=== PATIENT | female | born 1980 | race Caucasian/White ===

== ENCOUNTER 2022-08-01 16:56 | Emergency (ER) | payer BC, SELFPAY ==
[2022-08-01 17:15] VITALS: BP 121/83; PULSE 77; RESP 18; TEMP 36.7; O2SAT 99; BMI 21.2
[2022-08-01 18:03] LABS: UPreg QC Valid YES; Urine Pregnancy NEGATIVE (NEGATIVE)
[2022-08-01 18:09] LABS: Amphetamine Screen Urine Not Detected (Not Detect); Barbiturates, Urine Not Detected (Not Detect); Benzodiazepines Screen Urine POSITIVE (Not Detect); Cannabinoid Screen Urine Not Detected (Not Detect); Cocaine Screen Urine Not Detected (Not Detect); Fentanyl, urine Not Detected (Not Detect); Opiate Screen Urine Not Detected (Not Detect); Phencyclidine Screen Urine Not Detected (Not Detect)
--- NOTE | 2022-08-01 19:30 | MHC.CARE ---
CARE team consulted requested by ED provider for pt who arrived to the ED via ambulance from the [place] respite program after pt was determined to not be appropriate for admission due to concerns re: alcohol use. She denied SI/HI/AVH. Pt reported that she had an appointment with her therapist today and while discussing increased anxiety and stressed she has been experiencing at home recently her therapist recommended a respite stay. Pt had been hesitant to this but eventually agreed to go. Pt is with 3 children ages 7, 10, and 13. She shared that she and her family are in the processing of moving, her youngest child has been behaviorally challenging, and another one of her children is disabled and requires more support. 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 Pt reported that she occasionally may have a drink at lunch time and sometimes a few drinks in the evening. She denied alcohol dependence and history of withdrawal symptoms. She reported that she does not overuse her prescription clonazepam and that if she takes the medication that she won't have a drink, and vice versa. She declined wanting any resources for either mental health or substance use and reported that she'll defer to her therapist for any recommendations. No further assessment needed at this time. ED provider updated re: consultation. Pt is considered safe for discharge.
--- NOTE | 2022-08-01 19:55 | MHC.RECOVSUP ---
? Reason for consult:ETOH o? Current location:[facility]? o? Identified substance use concern:? -? Support ? Intervention: Checked in with pt ? Plan:Discharge ? Additional information:Pt informed me that things got blown out of porportion, she doesn't need any services at this time, and she is being discharged.
--- NOTE | 2022-08-01 20:10 | ED.PSYCH ---
HPI - Psych General Chief Complaint: ETOH/Substance Use Stated Complaint: Crisis Time Seen by Provider: 08/01/22 17:26 Source: patient Mode of arrival: ambulatory Limitations: no limitations History of Present Illness HPI Narrative: Patient is a 41-year-old female who presents to the emergency department for evaluation of increasing anxiety, and ETOH use. Patient states that she has been experiencing increased anxiety recently and feeling very overwhelmed. Her is very supportive. He tried to call her therapist, who however was not in office. There was a reporting on the answering machine for crisis hotline through [facility]. Ultimately she spoke with them and was referred to of respite center to which she presented to today. She was hopeful that this would help with her anxiety if she had some time away and was provided with tools for better managing her anxiety. However, they performed an alcohol use screening test on her, and expressed concerns about her potential for withdrawal due to EtOH use and there is no on-call medical provider there. Therefore she was advised to come to the emergency department. When asked, patient states that she may have 4-5 drinks most days, but does not drink this much every day. She does not awake requiring a drink, she has never gone through any reported withdrawal from alcohol or have any history of withdrawal seizures. She is however taking clonazepam a total of 6 mg daily in addition to mirtazapine at bedtime. She denies any suicidal or homicidal ideations. She is not interested in any type of detox from alcohol she does not feel that she needs this. At this time she feels that she would like to go home, she states that ?this whole experience has made my anxiety only worse?. Related Data Home Medications Medication Instructions Recorded Confirmed clonazepam 2 mg tablet 1 tab PO TID PRN Anxiety 08/01/22 08/01/22 mirtazapine 45 mg tablet 1 tab PO DAILY 08/01/22 08/01/22 Allergies Allergy/AdvReac Type Severity Reaction Status Date / Time No Known Allergies Allergy Unverified 04/01/20 17:45 Review of Systems Review of Systems: Constitutional : No Fever, No Chills ENT/Mouth : No Ear Pain, No Nasal Congestion, No sore throat Eyes: No Eye Pain, No Swelling, No Redness Cardiovascular : No Chest Pain, No SOB Respiratory : No Cough, No Sputum, No Dyspnea Gastrointestinal : No Nausea, No Vomiting, No Diarrhea, No Hematochezia, No Melena Genitourinary : No Dysuria, No Urinary Frequency, No Hematuria Musculoskeletal : No Myalgias Skin : No Skin Lesions, No rash Neuro : No Weakness, No Numbness, No Paresthesias, No Dizziness, No Headache Psych : positive Anxiety, positive Depression, no SI/HI Heme/Lymph: No Lymphadenopathy Endocrine : No Polyuria, No Polydipsia Yes all other systems are reviewed and are negative COUNT INCLUDES THE [facility] Past Medical History Attestation statement: The following information was validated with the patient. Source: old records reviewed Social History Social History Advance Directives: No Advance Directives Information Provided: Yes Physical Exam Vital Signs: Vital Signs: Last Vital Signs Temp 98.1 F 08/01/22 17:15 Pulse 77 08/01/22 17:15 Resp 18 08/01/22 17:15 BP 121/83 08/01/22 17:15 Pulse Ox 99 08/01/22 17:15 O2 Del Method 08/01/22 17:15 BMI result Body Mass Index 21.2 Appearance: Alert.?Oriented to person, place and time. No acute distress.?Normal affect. Eyes: Pupils equal, round and reactive to light.? ENT: Pharynx normal.?? Neck: Normal inspection.? Neck supple.?? CVS: Heart sounds normal. Normal heart rate and rhythm.? Pulses normal.?? Respiratory: No respiratory distress.? Lung sounds clear to auscultation bilaterally?? Abdomen: Soft and non-tender. Normoactive bowel sounds. No pulsatile mass.?? Skin: Skin warm and dry.? Normal skin color.? Normal skin turgor.?? Extremities: No lower extremity edema.? No calf ttp? Neuro: Moves all extremities spontaneously. Sensation intact bilaterally. CN II-XII intact. No focal neuro deficits. Ambulates with normal steady gait. Medical Decision Making Medical Decision Making MDM Narrative: Patient is a 41-year-old female with reported past medical history of anxiety presenting to the emergency department for evaluation of ETOH use and anxiety. Overall she is well-appearing, no evidence of psychosis. Denies any suicidal or homicidal ideations. Has no interest in detox from alcohol, does not feel that she requires this. She states that she consumes alcohol to help Elsie her anxiety. We did have an at length discussion about the use of alcohol while taking benzodiazepines and the potential complications that can arise. She verbalizes understanding of this. She states that she will speak with her this psychiatrist as well as her therapist to arrange better management of her anxiety. At this time she no longer has any in dressed in respite, or outpatient services. I did have the care team consult with her, to discuss potential options as I do feel that she would benefit from assistance with managing her anxiety. She however declines interest at this time and wants to follow-up outpatient. Reviewed worrisome signs and symptoms would warrant re-evaluation in the emergency department. Advised that she may return back with any new or worsening symptoms or concerns. Differential Diagnosis Differential Diagnoses: The differential diagnosis associated with the presentation includes (As noted above) Admission/Observation Consideration of admission/observation: Escalation of care including admission/observation considered As noted above Consult Healthcare Provider Management of the patient was discussed with: Health Plan Advisor (Care team) Lab Data MDM Lab Attestation statement: I reviewed the patient's lab results. Labs: Lab Results 08/01/22 08/01/22 Range/Units 17:47 17:47 Urine Test NEGATIVE (NEGATIVE) Urine Opiates Screen Not Detected (Not Detect) Urine Fentanyl Screen Not Detected (Not Detect) Ur Barbiturates Screen Not Detected (Not Detect) Ur Phencyclidine Scrn Not Detected (Not Detect) Ur Amphetamines Screen Not Detected (Not Detect) U Benzodiazepines Scrn POSITIVE H (Not Detect) Urine Cocaine Screen Not Detected (Not Detect) U Marijuana (THC) Screen Not Detected (Not Detect) Independent Historian Clinical information obtained from an independent historian. History obtained from or confirmed by: Spouse Discharge Plan Discharge Clinical Impression: Anxiety, Alcohol use disorder Patient Disposition: Home, Self-Care Instructions: Anxiety (ED) Additional Instructions: As discussed, you should consider refraining from alcohol consumption, especially considering the amount of clonazepam and mirtazapine that you are currently prescribed. These 2 medications taken in combination can be very dangerous. Please consult with your psychiatrist/therapist for for further recommendations as far as management of your anxiety. You were offered services in the emergency department, however you declined and requested to be discharged home. You may always return back to the emergency department with any new or worsening symptoms or concerns. Prescriptions: No Action clonazepam 2 mg tablet 1 tab PO TID MDD 6mg PRN (Reason: Anxiety) mirtazapine 45 mg tablet 1 tab PO DAILY Referrals: Barrett Hannah MD [Primary Care Provider] - Interventions: [place]-Suicide Risk Severity Scale Last Done: 08/01/22 18:22 ED Discharge Assessment Last Done: 08/01/22 20:14 Discharge Date/Time: 08/01/22 20:31
== END 2022-08-01 20:31 | disposition home or self-care (01) ==
PROVIDERS: Emergency Medicine; Emergency Provider Emergency Medicine Emergency Medical Services; PCP Internal Medicine
DX: F41.1 Generalized anxiety disorder (principal); F43.0 Acute stress reaction; F10.10 Alcohol abuse, uncomplicated; Y90.9 Presence of alcohol in blood, level not specified; Z79.899 Other long term (current) drug therapy
CPT/HCPCS: 80307; 81025; 99283

== ENCOUNTER 2024-09-26 11:19 | Outpatient (REF) | payer BC, SELFPAY ==
--- OUTSIDE RECORDS SUMMARY | 2024-09-26 13:06 | XMS_ITS | Data Portability ---
Author Organization [facility] [place] Address [address] [facility] [address] [place] [address] Assessment Encounter Date Assessment Date Assessment LastModified by Organization Details LastModified Time 07/28/2021 07/28/2021 Telemedicine Information: This telmed (audio + visual) appointment provided a MAT prescription. Time Start: 1114; Time End:1128 Provider Location: office; Patient Location: office Telemedicine Consent Given (verbal): Y BIO/PSYCH/SOCIAL/U PDATE MONTHLY MAT VISIT BRANDY COLEY TO [employer] SOBRIETY ON-GOING NEGATIVE UDS'S B/N TAPERING DOSE CONTS AT 0.5 MG/DAILY NOT READY TO IMPLEMENT 0.25 MG DOSE B/NOR 10/NEGATIVE----REP LIES TO NO W/D, CRAVINGS. 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 FOR PSYCH/DR NAJERA---Q 4-6 MONTHS---RX CLONZ PLAN CONT MONTHLY FOR SOBRIETY SUPPORT Lab Results Last UDS Result (Qual Screen): POS Buprenorphine and NO illicit drugs Last Confirmatory Test Result (LCMS/Quant): N/A due to Negative UDS Last Buprenorphine Confirmation Test Result: Bup: 10 ng/ml & Norbup: neg ng/ml Last LFT Result OVERDUE---PT AWARE. THIS PT IS BEING TREATED FOR OUD WITH BUPRENORPHINE AND IS SEEN MONTHLY . CURRENT PRESCRIPTION IS: B/N 0.5 MG/DAILY Assessment The patient's current phase of treatment is Stable maintenance, OUD . 1) Interpretation of Confirmatory (LCMS) Test Result: N/A due to NEG UDS 2) Interpretation of Last Buprenorphine Confirmation Test Result: No concern 3) Medication Dose: No report of cravings/withdrawa l symptoms. Pt will remain at current dose 4) Markers of Recovery include: NEG UDS'S 5) Counseling: Engaged in Counseling The patient does meet diagnostic criteria for opioid dependence. The patient is responding to treatment with buprenorphine at OBOT level of care at this phase of treatment. The patient does continue to be a good candidate for this level of care. LFT will be repeated per our clinical protocol. Urine drug testing is ordered today with medical necessity as below. LAB ORDERS - Confirmatory testing for illicit substances or absence of prescribed buprenorphine. UNEXPECTED results on UDS may impact this patient's treatment plan. The following tests require confirmation via LCMS: Y POS for AMPHETAMINE Y POS for BENZODIAZEPINES Y POS for COCAINE Y POS for METHADONE Y POS for OPIATES W/FENTANYL Y POS for OXYCODONE ADDITIONAL LAB(S) REQUESTED - if indicated, please order the following: NONE buprenorphine/nalo xone Patient's visit frequency should be monthly . Frequency of UDS and confirmatory test, if applicable, should be monthly . Treatment plan review or change includes continue current level of care . Referrals made today include none . Prescription monitoring program is reviewed . If reviewed, I have identified agents prescribed to the patient in addition to any issued by our program; the patient is counseled regarding any risk of combining sedating agents. [email or web address] Not available 07/28/2021 11:44:53 08/29/2021 08/29/2021 Lab Results Last UDS result (qualitative screen): 07/28/21POS buprenorphine and NO illicit drugs - Recent UDS results : negative for illicit substances for >12 months - Last UDS positive for illicit opioids : >2 yrs ago Last confirmatory test result (LCMS/quantitative ): 07/28/21 N/A due to negative UDS Last buprenorphine confirmation test result: 07/28/21 Bup: 13 ng/ml & Norbup: 12 ng/ml Last LFT result : 07/14/20 WNL Since Last Visit This pt is being treated for OUD with buprenorphine and is seen MONTHLY. Current prescription is: buprenorphine/nalo xone 0.25-0.5mg films OUD : - Initial visit : - Dosing : BNX 2/0.5 mg, take 18-1/4 film daily as tapering dose, pt has 1.5 films left Stable in sobriety. Pt denies any cravings or any illicit substance use since last visit. No adverse effects from BNX. Has been tapering her BNX dose, taking 0.25 mg daily for the last 2 weeks. Feels minimal withdrawal symptoms, some slight irritability. Would like to continue this dosing for the next month. Alcohol: Pt drinks alcohol on occasion. Marijuana: No MJ use. > Bio/psycho/social Update : Counseling with Jalen Watson, 1-2 times monthly, last visit 08/17/21. Dr. Najera, PCP, prescribes Clonazepam. Stable housing. Has three children, ages 7, 10 and 12. 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 Assessment The patient's current phase of treatment is Stable maintenance, OUD. 1) Interpretation of confirmatory (LCMS) test result: N/A due to NEG UDS 2) Interpretation of last buprenorphine confirmation test result: No concern 3) Medication dose: No report of severe or persistent cravings/withdrawa l symptoms. Pt will remain at current dose 4) Markers of recovery include: attending today's appointment 5) Counseling: Engaged in counseling The patient does meet diagnostic criteria for opioid use disorder. The patient is responding to treatment with buprenorphine at OBOT level of care at this phase of treatment. The patient does continue to be a good candidate for this level of care. LFT will be repeated per our clinical protocol. Urine drug testing is ordered today with medical necessity as below. LAB ORDERS - Confirmatory testing for illicit substances or absence of prescribed buprenorphine. UNEXPECTED results on UDS may impact this patient's treatment plan. The following tests require confirmation via LCMS: Y POS for AMPHETAMINE RX POS for BENZODIAZEPINES Y POS for COCAINE Y POS for METHADONE Y POS for OPIATES W/FENTANYL Y POS for OXYCODONE ADDITIONAL LAB(S) REQUESTED - if indicated, please order the following: NONE Plan OUD : Continue buprenorphine/nalo xone 0.25 - 0.5mg films daily. Continue monthly visits and UDS. 28d Rx provided today. Treatment plan review or change includes continue current level of care. Referrals made today include none. Prescription monitoring program is reviewed. If reviewed, I have identified agents prescribed to the patient in addition to any issued by our program; the patient is counseled regarding any risk of combining sedating agents. [email or web address] Not available 08/29/2021 12:31:07 09/26/2021 09/26/2021 This patient wit h a history of OUD presents today for their monthly MAT visit Current prescription is: buprenorphine/nalo xone 2/0.5mg films Patient denies any S/E, cravings, or withdrawal sx at current dose Update Since Last Visit : OUD : - Initial visit : - Dosing : BNX 2/0.5 mg, take 1/10 film daily as tapering dose, pt has 2 films left Stable in sobriety. Pt denies any illicit opiate use since last visit. Has been slowly tapering her BNX dose. Has not dosed in 3 days. Feels some anxiety but no other withdrawal symptoms. Is working closely with PCP to manage anxiety, was given 1 week RX for librium, this has helped but insurance will not pay for more than a week. Will try hydroxyzine to manage anxiety as tapering off BNX. Also discussed non-pharmaceutical methods of anxiety management, breathing techniques and warm water therapy. Alcohol: Pt drinks alcohol on occasion. Marijuana: No MJ use. > Bio/psycho/social Update : Counseling with Jalen Watson, 1-[address] Najera, PCP, prescribes Clonazepam. Stable housing. Has three children, ages 7, 10 and 12. 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 Lab Results Last UDS result (qualitative screen): 08/29/21,NEG buprenorphine and NO illicit drugs - Recent UDS results : negative for illicit substances for >12 months - Last UDS positive for illicit opioids : >2 yrs ago Last confirmatory test result (LCMS/quantitative ): 08/29/21, Quantitative levels of: NEG all OPIATES Last buprenorphine confirmation test result: 08/29/21, Bup: LOW ng/ml & Norbup: NEG ng/ml Last LFT result: 07/14/20, WNL ASSESSMENT The patient's current phase of OUD treatment is: Stable maintenance. Interpretation of last buprenorphine confirmation test result: No concern - pt is tapering off BNX Medication dose: No report of severe or persistent cravings/withdrawa l symptoms. Pt will remain at current dose PLAN: Rx : Continue buprenorphine/nalo xone 0.2mg films daily and slow taper as tolerated. Take hydroxyzine pamoate 50 mg QID PRN anxiety as tapering off BNX. Rx Quantity No BNX provided today. 1 week hydroxyzine pamoate RX. VISIT FREQUENCY Continue monthly visits with monthly UDS. Treatment plan review or change includes continue current level of care LAB ORDERS: Urine drug testing is ordered today with medical necessity as below. Confirmatory testing may be indicated for illicit substances or absence of prescribed buprenorphine. UNEXPECTED results on UDS (presumptive testing) may impact this patient's treatment plan. Therefore, the following tests require confirmation via LCMS: If POS for AMPHETAMINE : Perform Conf Testing If POS for BENZODIAZEPINES : Perform Conf Testing If POS for COCAINE : Perform Conf Testing If POS for METHADONE : Perform Conf Testing If POS for OPIATES (incl FENTANYL) : Perform Conf Testing If POS for OXYCODONE : Perform Conf Testing ADDITIONAL LAB(S) REQUESTED : If indicated, please perform the following: NONE LFTS will be repeated per our clinical protocol. Prescription monitoring program is reviewed. If applicable, I have identified agents prescribed to the patient in addition to any issued by our program. The patient has been counseled regarding any risk of combining sedating agents. [email or web address] Not available 09/26/2021 11:49:41 Plan of Treatment Reminders Order Date Submit Date Provider Last Modified By Organization Details Last Modified Time Details Appointments None recorded. Lab drug screen, urine 2021 [facility], [address] [place], [address], 2 11:14:41 drug screen, urine 2021 [facility], [address] [place], [address], 2 14:44:54 test, urine 2021 022 [email or web address] [place], [address] [place] [address], [place], [address], 11:37:20 drug screen, urine 2021 022 [facility], [address] [place], [address], 2 05:28:31 AST/SGOT (aspartate aminotransf erase), serum or plasma 2021 [email or web address], [address] [place], [address], 11:27:44 ALT (alanine aminotransf erase), serum or plasma 2021 [email or web address], [address] [place], [address], 11:27:45 gamma-gluta myl transferase (ggt), serum 2021 [email or web address], [address] [facility] [place], [address], 11:27:45 Referral None recorded. Procedures None recorded. Surgeries None recorded. Imaging None recorded. Medication Orders hydroxyzine pamoate 50 mg capsule 2021 [facility]/Ph[facility]acy #[id number], [address] [facility] [place], [address], 11:42:47 buprenorphi ne 2 mg-naloxone 0.5 mg sublingual film 2021 [facility]/Pharmacy #[id number], [address] [facility] [place], [address], 11:37:23 Patient TargetsNo targets recorded. Patient Instructions Encounter Date Encounter Id Patient Instructions Last Modified By Organization Details Last Modified Time 07/28/2021 [id number] As part of your individualized treatment plan and program requirement, you will need to bring your correct prescription bottle and all used and unused medication and counseling verification to each appointment; > Agree to participate in counseling and bring counseling verification to each appointment; > Agree to present for random visits; > Agree to not falsify your urine specimens. [email or web address] Not available 07/28/2021 10:42:55 Education provid ed at today's visit included: Review of patient's individualized treatment plan; Review of program policies: RX, visit, counseling and DATA compliance; Review medication administration technique; Discussion proper care of medication/safety/ lock box; Counseling re: trigger avoidance, relapse prevention and the importance of developing a sober network; Counseling re safe sex and control; Review risk of BZD and BUP, as well as ETOH; Counseling re: Discovery & Drop out prevention in early recovery. [email or web address] Not available 07/28/2021 10:42:55 08/29/2021 [id number] As part of your individualized treatment plan and program requirement, you will need to bring your correct prescription bottle and all used and unused medication and counseling verification to each appointment; > Agree to participate in counseling and bring counseling verification to each appointment; > Agree to present for random visits; > Agree to not falsify your urine specimens. Not available 08/29/2021 11:12:05 Education provid ed at today's visit included: Review of patient's individualized treatment plan; Review of program policies: RX, visit, counseling and DATA compliance; Review medication administration technique; Discussion proper care of medication/safety/ lock box; Counseling re: trigger avoidance, relapse prevention and the importance of developing a sober network; Counseling re safe sex and control; Review risk of BZD and BUP, as well as ETOH; Counseling re: Discovery & Drop out prevention in early recovery. Not available 08/29/2021 11:12:05 Reason for Referral None Reported. Results Created Date Observation Date Name Description Value Unit Range Abnormal Flag Note LastModifiedBy Organization Detail LastModifiedTime 07/01/20 21 07/01/2021 BUPRE NORPH INE PT SCREE BETTINA amphetamines NEGATI VE NG/mL 1,000 Cricket santiago d by LUDWIN REDMAN Not Available [employer] [place] [address] [address] [place], [address], 07/22/2021 15:17:23 07/01/20 21 07/01/2021 BUPRE NORPH INE PT SCREE BETTINA benzodiazapi tate NEGATI VE NG/mL 200 Not Available [employer] [facility] [address] [place], [address], 07/22/2021 15:17:23 07/01/20 21 07/01/2021 BUPRE NORPH INE PT SCREE BETTINA buprenorphin e NEGATI VE NG/mL 5 abnormal Not Available [place] [address] [place], [address], 07/22/2021 15:17:23 07/01/20 21 07/01/2021 BUPRE NORPH INE PT SCREE BETTINA cocaine metabolite NEGATI VE NG/mL 150 Not Available [place] [address] [place], [address], 07/22/2021 15:17:23 07/01/20 21 07/01/2021 BUPRE NORPH INE PT SCREE BETTINA opiates NEGATI VE NG/mL 300 Not Available [place] [address] [place], [address], 07/22/2021 15:17:23 07/01/20 21 07/01/2021 BUPRE NORPH INE PT SCREE BETTINA oxycodone NEGATI VE NG/mL 300 Not Available [place] [address] [place], [address], 07/22/2021 15:17:23 07/01/20 21 07/01/2021 BUPRE NORPH INE PT SCREE BETTINA fentanyl NEGATI VE NG/mL 2 Not Available [place] [address] [place], [address], 07/22/2021 15:17:23 07/01/20 21 07/01/2021 BUPRE NORPH INE PT SCREE BETTINA ethyl alcohol NEGATI VE mg/dL 10 Not Available [place] [address] [place], [address], 07/22/2021 15:17:23 07/01/20 21 07/01/2021 BUPRE NORPH INE PT SCREE BETTINA methadone metabolite NEGATI VE NG/mL 300 Not Available [place] [address] [place], [address], 07/22/2021 15:17:23 07/01/20 21 07/01/2021 BUPRE NORPH INE PT SCREE BETTINA urine creatinine 26.8 mg/dL >20 Not Available [place] [address] [place], [address], 07/22/2021 15:17:23 07/01/20 21 07/01/2021 BUPRE NORPH INE PT SCREE BETTINA urine pH 7.90 4.5-9. 0 Not Available [place] [address] [place], [address], 07/22/2021 15:17:23 07/01/20 21 07/01/2021 BUPRE NORPH INE PT SCREE BETTINA specific gravity 1.005 1.003- 1.035 Not Available [place] [address] [place], [address], 07/22/2021 15:17:23 07/01/20 21 07/01/2021 PRESC RIBED DRUG CONFI RMATI ON [place]ES , BUPRE NORPH INE, QN, U buprenorphin e ATR NG/mL 20 Elect joni santiago d by LUDWIN REDMAN Not Available [place] [address] [place], [address], 07/22/2021 15:44:16 07/01/20 21 07/01/2021 PRESC RIBED DRUG CONFI RMATI ON [place] , BUPRE NORPH INE, QN, U norbuprenorp trista ATR NG/mL 50 Not Available [place] [address] [place], [address], 07/22/2021 15:44:16 07/01/20 21 07/01/2021 PRESC RIBED DRUG CONFI RMATI ON [place] , BUPRE NORPH INE, QN, U alpha-hydrox yalprazolam NEGATI VE NG/mL 25 Not Available [place] [address] [place], [address], 07/22/2021 15:44:16 07/01/20 21 07/01/2021 PRESC RIBED DRUG CONFI RMATI ON [place] , BUPRE NORPH INE, QN, U 7-aminoclona zepam 135.3 NG/mL 40 high Not Available [place] [address] [place], [address], 07/22/2021 15:44:16 07/01/20 21 07/01/2021 PRESC RIBED DRUG CONFI RMATI ON [place] , BUPRE NORPH INE, QN, U diazepam NEGATI VE NG/mL 50 Not Available [place] [address] [place], [address], 07/22/2021 15:44:16 07/01/20 21 07/01/2021 PRESC RIBED DRUG CONFI RMATI ON [place] , BUPRE NORPH INE, QN, U lorazepam NEGATI VE NG/mL 50 Not Available [place] [address] [place], [address], 07/22/2021 15:44:16 07/01/20 21 07/01/2021 PRESC RIBED DRUG CONFI RMATI ON [place] , BUPRE NORPH INE, QN, U nordiazepam NEGATI VE NG/mL 50 Not Available [place] [address] [place], [address], 07/22/2021 15:44:16 07/01/20 21 07/01/2021 PRESC RIBED DRUG CONFI RMATI ON [place] , BUPRE NORPH INE, QN, U temazepam NEGATI VE NG/mL 50 Not Available [place] [address] [place], [address], 07/22/2021 15:44:16 07/01/20 21 07/01/2021 PRESC RIBED DRUG CONFI RMATI ON [place] , BUPRE NORPH INE, QN, U legend ABBREV IATION S LOW - Detec luigi but unqua ntifi able OLR - Outsi de of linea r range ATR - Addit ional Testi ng Requi red Not Available [place] [address] [place], [address], 07/22/2021 15:44:16 07/01/20 21 07/01/2021 PRES RIBED DRUG CONFI RMATI ON [place] , BUPRE NORPH INE, QN, U billing only ([id number]) BILLIN G ONLY Not Available [place] [address] [place], [address], 07/22/2021 15:44:16 07/01/20 21 07/01/2021 REPEA LUIGI BUPRE NORPH INE, QN, U buprenorphin e LOW(<1 0) NG/mL 10 low Not Available [place] [address] [place], [address], 07/22/2021 16:22:13 07/01/20 21 07/01/2021 REPEA LUIGI BUPRE NORPH INE, QN, U norbuprenorp trista NEGATI VE NG/mL 10 abnormal Not Available [place] [address] [place], [address], 07/22/2021 16:22:13 07/01/20 21 07/01/2021 REPEA LUIGI BUPRE NORPH INE, QN, U legend ABBREV IATION S LOW - Detec luigi but unqua ntifi able OLR - Outsi de of linea r range Not Available [place] [address] [place], [address], 07/22/2021 16:22:13 07/28/19 22 07/28/2021 BUPRE NORPH INE PT SCREE BETTINA amphetamines Negati ve NG/mL 1,000 Cricket santiago d by LUDWIN REDMAN Not Available [place] [address] [place], [address], 08/03/2021 05:28:31 07/28/19 22 07/28/2021 BUPRE NORPH INE PT SCREE BETTINA benzodiazapi tate Negati ve NG/mL 200 Not Available [facility] [address] [place], [address], 08/03/2021 05:28:31 07/28/19 22 07/28/2021 BUPRE NORPH INE PT SCREE BETTINA buprenorphin e Positi ve NG/mL 5 Not Available [place] [address] [place], [address], 08/03/2021 05:28:31 07/28/19 22 07/28/2021 BUPRE NORPH INE PT SCREE BETTINA cocaine metabolite Negati ve NG/mL 150 Not Available [facility] [address] [place], [address], 08/03/2021 05:28:31 07/28/19 22 07/28/2021 BUPRE NORPH INE PT SCREE BETTINA opiates Negati ve NG/mL 300 Not Available [place] [address] [place], [address], 08/03/2021 05:28:31 07/28/19 22 07/28/2021 BUPRE NORPH INE PT SCREE BETTINA oxycodone Negati ve NG/mL 300 Not Available [place] [address] [place], [address], 08/03/2021 05:28:31 07/28/19 22 07/28/2021 BUPRE NORPH INE PT SCREE BTETINA fentanyl Negati ve NG/mL 2 Not Available [place] [address] [place], [address], 08/03/2021 05:28:31 07/28/19 22 07/28/2021 BUPRE NORPH INE PT SCREE BETTINA ethyl alcohol Negati ve mg/dL 10 Not Available [place] [address] [place], [address], 08/03/2021 05:28:31 07/28/19 22 07/28/2021 BUPRE NORPH INE PT SCREE BETTINA methadone metabolite Negati ve NG/mL 300 Not Available [place] [address] [place], [address], 08/03/2021 05:28:31 07/28/19 22 07/28/2021 BUPRE NORPH INE PT SCREE BETTINA urine creatinine 98.1 mg/dL >20 Not Available [place] [address] [place], [address], 08/03/2021 05:28:31 07/28/19 22 07/28/2021 BUPRE NORPH INE PT SCREE BETTINA urine pH 6.70 4.5-9. 0 Not Available [place] [address] [place], [address], 08/03/2021 05:28:31 07/28/19 22 07/28/2021 BUPRE NORPH INE PT SCREE BETTINA specific gravity 1.009 1.003- 1.035 Not Available [place] [address] [place], [address], 08/03/2021 05:28:31 07/28/19 22 07/28/2021 PRESC RIBED DRUG CONFI RMATI ON [place] , BUPRE NORPH INE, QN, U buprenorphin e ATR NG/mL 20 Cricket preston by LUDWIN REDMAN Not Available [place] [address] [place], [address], 08/10/2021 11:59:51 07/28/19 22 07/28/2021 PRESC RIBED DRUG CONFI RMATI ON [place] , BUPRE NORPH INE, QN, U norbuprenorp trista ATR NG/mL 50 Not Available [place] [address] [place], [address], 08/10/2021 11:59:51 07/28/19 22 07/28/2021 PRESC RIBED DRUG CONFI RMATI ON [place] , BUPRE NORPH INE, QN, U alpha-hydrox yalprazolam Negati ve NG/mL 25 Not Available [place] [address] [place], [address], 08/10/2021 11:59:51 07/28/19 22 07/28/2021 PRESC RIBED DRUG CONFI RMATI ON [place] , BUPRE NORPH INE, QN, U 7-aminoclona zepam 391.0 NG/mL 40 high Not Available [place] [address] [place], [address], 08/10/2021 11:59:51 07/28/19 22 07/28/2021 PRESC RIBED DRUG CONFI RMATI ON [place] , BUPRE NORPH INE, QN, U diazepam Negati ve NG/mL 50 Not Available [place] [address] [place], [address], 08/10/2021 11:59:51 07/28/19 22 07/28/2021 PRESC RIBED DRUG CONFI RMATI ON [place] , BUPRE NORPH INE, QN, U lorazepam Negati ve NG/mL 50 Not Available [place] [address] [place], [address], 08/10/2021 11:59:51 07/28/19 22 07/28/2021 PRESC RIBED DRUG CONFI RMATI ON [place] , BUPRE NORPH INE, QN, U nordiazepam Negati ve NG/mL 50 Not Available [place] [address] [place], [address], 08/10/2021 11:59:51 07/28/19 22 07/28/2021 PRESC RIBED DRUG CONFI RMATI ON [place] , BUPRE NORPH INE, QN, U temazepam Negati ve NG/mL 50 Not Available [place] [address] [place], [address], 08/10/2021 11:59:51 07/28/19 22 07/28/2021 PRES RIBED DRUG CONFI RMATI ON [place] , BUPRE NORPH INE, QN, U legend Abbrev iation s LOW - Detec luigi but unqua ntifi able OLR - Outsi de of linea r range ATR - Addit ional Testi ng Requi red Not Available [facility] [address] [place], [address], 08/10/2021 11:59:51 07/28/19 22 07/28/2021 PRES RIBED DRUG CONFI RMATI ON [place] , BUPRE NORPH INE, QN, U billing only ([id number]) Billin g Only Not Available [place] [address] [place], [address], 08/10/2021 11:59:51 07/28/19 22 07/28/2021 REPEA LUIGI BUPRE NORPH INE, QN, U buprenorphin e 13.7 NG/mL 10 Not Available [facility] [address] [place], [address], 08/11/2021 12:56:33 07/28/19 22 07/28/2021 REPEA LUIGI BUPRE NORPH INE, QN, U norbuprenorp trista 12.2 NG/mL 10 Not Available [facility] [address] [place], [address], 08/11/2021 12:56:33 07/28/19 22 07/28/2021 REPEA LUIGI BUPRE NORPH INE, QN, U legend Abbrev iation s LOW - Detec luigi but unqua ntifi able OLR - Outsi de of linea r range Not Available [facility] [address] [place], [address], 08/11/2021 12:56:33 08/29/19 22 08/29/2021 BUPRE NORPH INE PT SCREE BETTINA amphetamines Negati ve NG/mL 1,000 Elect joni santiago d by PARKER ODONNELL Not Available [place] [address] [place], [address], 08/30/2021 14:44:54 08/29/19 22 08/29/2021 BUPRE NORPH INE PT SCREE BETTINA benzodiazapi tate Negati ve NG/mL 200 Not Available [place] [address] [place], [address], 08/30/2021 14:44:54 08/29/19 22 08/29/2021 BUPRE NORPH INE PT SCREE BETTINA buprenorphin e Negati ve NG/mL 5 abnormal Not Available [place] [address] [place], [address], 08/30/2021 14:44:54 08/29/19 22 08/29/2021 BUPRE NORPH INE PT SCREE BETTINA cocaine metabolite Negati ve NG/mL 150 Not Available [place] [address] [place], [address], 08/30/2021 14:44:54 08/29/19 22 08/29/2021 [facility] PT [facility] opiates Negati ve NG/mL 300 Not Available [place] [address] [place], [address], 08/30/2021 14:44:54 08/29/19 22 08/29/2021 [facility] PT SCREE [facility] oxycodone Negati ve NG/mL 300 Not Available [place] [address] [place], [address], 08/30/2021 14:44:54 08/29/19 22 08/29/2021 [facility] PT SCREE [facility] fentanyl Negati ve NG/mL 2 Not Available [place] [address] [place], [address], 08/30/2021 14:44:54 08/29/19 22 08/29/2021 [facility] PT S[facility] ethyl alcohol Negati ve mg/dL 10 Not Available [place] [address] [place], [address], 08/30/2021 14:44:54 08/29/19 22 08/29/2021 [facility] PT SCREE [facility]TINA methadone metabolite Negati ve NG/mL 300 Not Available [place] [address] [place], [address], 08/30/2021 14:44:54 08/29/19 22 08/29/2021 BUP[facility] PT SCREE BETTINA cannabinoids (THC) Negati ve NG/mL 50 Not Available [place] [address] [place], [address], 08/30/2021 14:44:54 08/29/19 22 08/29/2021 [facility] PT SCREE BETTINA urine creatinine 18.7 mg/dL >20 low Not Available [place] [address] [place], [address], 08/30/2021 14:44:54 08/29/19 22 08/29/2021 BUP[facility] PT SCREE BETTINA urine pH 7.70 4.5-9. 0 Not Available [place] [address] [place], [address], 08/30/2021 14:44:54 08/29/19 22 08/29/2021 B[facility] PT SCREE BETTINA specific gravity 1.004 1.003- 1.035 Not Available [place] [address] [place], [address], 08/30/2021 14:44:54 08/29/19 22 08/29/2021 PRESC RIBED DRUG CONFI RMATI ON B[place] PINES , BUPRE NORPH INE, QN, U buprenorphin e LOW(<2 0) NG/mL 20 low Elect joni santiago d by PARKER ODONNELL Not Available [place] [address] [place], [address], 09/06/2021 06:49:23 08/29/19 22 08/29/2021 PRESC RIBED DRUG CONFI RMATI ON [place] , BUPRE NORPH INE, QN, U norbuprenorp trista Negati ve NG/mL 50 abnormal Not Available [place] [address] [place], [address], 09/06/2021 06:49:23 08/29/19 22 08/29/2021 PRESC RIBED DRUG CONFI RMATI ON [place] , BUPRE NORPH INE, QN, U alpha-hydrox yalprazolam Negati ve NG/mL 25 Not Available [place] [address] [place], [address], 09/06/2021 06:49:23 08/29/19 22 08/29/2021 PRESC RIBED DRUG CONFI RMATI ON [place] , BUPRE NORPH INE, QN, U 7-aminoclona zepam 119.5 NG/mL 40 high Not Available [place] [address] [place], [address], 09/06/2021 06:49:23 08/29/19 22 08/29/2021 PRESC RIBED DRUG CONFI RMATI ON [place] , BUPRE NORPH INE, QN, U diazepam Negati ve NG/mL 50 Not Available [place] [address] [place], [address], 09/06/2021 06:49:23 08/29/19 22 08/29/2021 PRESC RIBED DRUG CONFI RMATI ON [place] , BUPRE NORPH INE, QN, U lorazepam Negati ve NG/mL 50 Not Available [place] [address] [place], [address], 09/06/2021 06:49:23 02/14/20 22 08/29/2021 PRESC RIBED DRUG CONFI RMATI ON [place] , BUPRE NORPH INE, QN, U nordiazepam Negati ve NG/mL 50 Not Available [place] [address] José Antonio Cruz [place], [address], 09/06/2021 06:49:23 08/29/19 22 08/29/2021 PRESC RIBED DRUG CONFI RMATI ON [place] , BUPRE NORPH INE, QN, U temazepam Negati ve NG/mL 50 Not Available [facility] [address] Tiana Mccann [place], [address], 09/06/2021 06:49:23 08/29/19 22 08/29/2021 PRESC RIBED DRUG CONFI RMATI ON [place] , BUPRE NORPH INE, QN, U legend Abbrev iation s LOW - Detec luigi but unqua ntifi able OLR - Outsi de of linea r range ATR - Addit ional Testi ng Requi red Not Available [place] [address] [place], [address], 09/06/2021 06:49:23 08/29/19 22 08/29/2021 PRESC RIBED DRUG CONFI RMATI ON [place] , BUPRE NORPH INE, QN, U billing only ([id number]) Billin g Only Not Available [place] [address] [place]é [place], [address], 09/06/2021 06:49:23 08/29/19 22 08/29/2021 OPIAT E W/ FENTA NYL 6-acetylmorp trista Negati ve NG/mL 10 Cricket santiago d by PARKER ODONNELL Not Available [place] [address] [place], [address], 09/06/2021 06:49:23 08/29/19 22 08/29/2021 OPIAT E W/ FENTA NYL codeine Negati ve NG/mL 50 Not Available [facility] [address] [place], [address], 09/06/2021 06:49:23 08/29/19 22 08/29/2021 OPIAT E W/ FENTA NYL hydrocodone Negati ve NG/mL 50 Not Available [facility] [address] [place], [address], 09/06/2021 06:49:23 08/29/19 22 08/29/2021 OPIAT E W/ FENTA NYL hydromorphon e Negati ve NG/mL 50 Not Available [facility] [address] [place], [address], 09/06/2021 06:49:23 08/29/19 22 08/29/2021 OPIAT E W/ FENTA NYL morphine Negati ve NG/mL 50 Not Available [facility] [address] [place], [address], 09/06/2021 06:49:23 08/29/19 22 08/29/2021 OPIAT E W/ FENTA NYL norhydrocodo ne Negati ve NG/mL 100 Not Available [facility] [address] [place], [address], 09/06/2021 06:49:23 08/29/19 22 08/29/2021 OPIAT E W/ FENTA NYL fentanyl Negati ve NG/mL 20 Not Available [facility] [address] [place], [address], 09/06/2021 06:49:23 08/29/19 22 08/29/2021 OPIAT E W/ FENTA NYL norfentanyl Negati ve NG/mL 20 Not Available [facility] [address] [place], [address], 09/06/2021 06:49:23 08/29/19 22 08/29/2021 OPIAT E W/ FENTA NYL tramadol Negati ve NG/mL 100 Not Available [facility] [address] [place], [address], 09/06/2021 06:49:23 08/29/19 22 08/29/2021 OPIAT E W/ FENTA NYL legend Abbrev iation s OLR - Outsi de of linea r range Not Available [place] [address] [place], [address], 09/06/2021 06:49:23 08/29/19 22 08/29/2021 pregn marya test, urine HCG negati ve Not Available [facility] [address], [address], 08/29/2021 11:14:17 09/27/19 22 09/26/2021 BUPRE NORPH INE PT SCREE BETTINA amphetamines Negati ve NG/mL 1,000 Elect joni santiago d by PARKER ODONNELL Not Available [place] [address] [place], [address], 09/27/2021 11:14:41 09/27/19 22 09/26/2021 BUPRE NORPH INE PT SCREE BETTINA benzodiazapi tate Positi ve NG/mL 200 abnormal Not Available [facility] [address] [place], [address], 09/27/2021 11:14:41 09/27/19 22 09/26/2021 BUPRE NORPH INE PT SCREE BETTINA buprenorphin e Negati ve NG/mL 5 abnormal Not Available [facility] [address] [place], [address], 09/27/2021 11:14:41 09/27/19 22 09/26/2021 BUPRE NORPH INE PT SCREE BETTINA cocaine metabolite Negati ve NG/mL 150 Not Available [facility] [address] [place], [address], 09/27/2021 11:14:41 09/27/19 22 09/26/2021 BUPRE NORPH INE PT SCREE BETTINA opiates Negati ve NG/mL 300 Not Available [facility] [address] [place], [address], 09/27/2021 11:14:41 09/27/19 22 09/26/2021 BUPRE NORPH INE PT SCREE BETTINA oxycodone Negati ve NG/mL 300 Not Available [place] [address] [place], [address], 09/27/2021 11:14:41 09/27/19 22 09/26/2021 BUPRE NORPH INE PT SCREE BETTINA fentanyl Negati ve NG/mL 2 Not Available [place] [address] [place], [address], 09/27/2021 11:14:41 09/27/19 22 09/26/2021 BUPRE NORPH INE PT SCREE BETTINA ethyl alcohol Negati ve mg/dL 10 Not Available [place] [address] [place], [address], 09/27/2021 11:14:41 09/27/19 22 09/26/2021 BUPRE NORPH INE PT SCREE BETTINA methadone metabolite Negati ve NG/mL 300 Not Available [place] [address] [place], [address], 09/27/2021 11:14:41 09/27/19 22 09/26/2021 BUPRE NORPH INE PT SCREE BETTINA cannabinoids (THC) Negati ve NG/mL 50 Not Available [facility] [address] [place], [address], 09/27/2021 11:14:41 09/27/19 22 09/26/2021 BUPRE NORPH INE PT SCREE BETTINA urine creatinine 27.3 mg/dL >20 Not Available [place] [address] [place], [address], 09/27/2021 11:14:41 09/27/19 22 09/26/2021 BUPRE NORPH INE PT SCRERk NETTLESG urine pH 6.50 4.5-9. 0 Not Available [place] [address] [place], [address], 09/27/2021 11:14:41 09/27/19 22 09/26/2021 BUPRE NORPH INE PT SCRERk NETTLESG specific gravity 1.005 1.003- 1.035 Not Available [place] [address] [place], [address], 09/27/2021 11:14:41 09/27/19 22 09/26/2021 PRESC RIBED DRUG CONFI RMATI ON [place] , BUPRE NORPH INE, QN, U buprenorphin e LOW(<2 0) NG/mL 20 low Elect joni santiago d by PARKER ODONNELL Not Available [place] [address] ChaparroJosé Antonio Lawson [place], [address], 09/30/2021 12:42:07 09/27/19 22 09/26/2021 PRESC RIBED DRUG CONFI RMATI ON [place] , BUPRE NORPH INE, QN, U norbuprenorp trista LOW(<5 0) NG/mL 50 low Not Available [facility] [address] Bakarirk Mccann [place], [address], 09/30/2021 12:42:07 09/27/19 22 09/26/2021 PRESC RIBED DRUG CONFI RMATI ON [place] , BUPRE NORPH INE, QN, U alpha-hydrox yalprazolam Negati ve NG/mL 25 Not Available [facility] [address] 12 Bakarirk Mccann [place], [address], 09/30/2021 12:42:07 09/27/19 22 09/26/2021 PRESC RIBED DRUG CONFI RMATI ON [place] , BUPRE NORPH INE, QN, U 7-aminoclona zepam 199.5 NG/mL 40 high Not Available [place] [address] [place], [address], 09/30/2021 12:42:07 09/27/19 22 09/26/2021 PRESC RIBED DRUG CONFI RMATI ON [place] , BUPRE NORPH INE, QN, U diazepam Negati ve NG/mL 50 Not Available [facility] [address] [place], [address], 09/30/2021 12:42:07 09/27/19 22 09/26/2021 PRESC RIBED DRUG CONFI RMATI ON [place] , BUPRE NORPH INE, QN, U lorazepam Negati ve NG/mL 50 Not Available [facility] [address] [place], [address], 09/30/2021 12:42:07 09/27/19 22 09/26/2021 PRESC RIBED DRUG CONFI RMATI ON [place] , BUPRE NORPH INE, QN, U nordiazepam Negati ve NG/mL 50 Not Available [facility] [address] [place], [address], 09/30/2021 12:42:07 09/27/19 22 09/26/2021 PRESC RIBED DRUG CONFI RMATI ON [place] , BUPRE NORPH INE, QN, U temazepam Negati ve NG/mL 50 Not Available [facility] [address] [place], [address], 09/30/2021 12:42:07 09/27/19 22 09/26/2021 PRESC RIBED DRUG CONFI RMATI ON [place] , BUPRE NORPH INE, QN, U legend Abbrev iation s LOW - Detec luigi but unqua ntifi able OLR - Outsi de of linea r range ATR - Addit ional Testi ng Requi red Not Available [place] [address] [place], [address], 09/30/2021 12:42:07 09/27/19 22 09/26/2021 [facility] RIBED DRUG CONFI RMATI ON [place] , BUPRE NORPH INE, QN, U billing only ([id number]) Billin g Only Not Available [facility] [address] [place], [address], 09/30/2021 12:42:07 09/27/19 22 09/26/2021 OPIAT E W/ FENTA NYL 6-acetylmorp trista Negati ve NG/mL 10 Cricket santiago d by PARKER ODONNELL Not Available [place] [address] [place], [address], 09/30/2021 12:42:07 09/27/19 22 09/26/2021 OPIAT E W/ FENTA NYL codeine Negati ve NG/mL 50 Not Available [facility] [address] [place], [address], 09/30/2021 12:42:07 09/27/19 22 09/26/2021 OPIAT E W/ FENTA NYL hydrocodone Negati ve NG/mL 50 Not Available [facility] [address] [place], [address], 09/30/2021 12:42:07 09/27/19 22 09/26/2021 OPIAT E W/ FENTA NYL hydromorphon e Negati ve NG/mL 50 Not Available [facility] [address] [place], [address], 09/30/2021 12:42:07 09/27/19 22 09/26/2021 OPIAT E W/ FENTA NYL morphine Negati ve NG/mL 50 Not Available [facility] [address] [place], [address], 09/30/2021 12:42:07 09/27/19 22 09/26/2021 OPIAT E W/ FENTA NYL norhydrocodo ne Negati ve NG/mL 100 Not Available [place] [address] [place], [address], 09/30/2021 12:42:07 09/27/19 22 09/26/2021 OPIAT E W/ FENTA NYL fentanyl Negati ve NG/mL 20 Not Available [facility] [address] [place], [address], 09/30/2021 12:42:07 09/27/19 22 09/26/2021 OPIAT E W/ FENTA NYL norfentanyl Negati ve NG/mL 20 Not Available [facility] [address] [place], [address], 09/30/2021 12:42:07 09/27/19 22 09/26/2021 OPIAT E W/ FENTA NYL tramadol Negati ve NG/mL 100 Not Available [place] [address] [place], [address], 09/30/2021 12:42:07 09/27/19 22 09/26/2021 OPIAT E W/ FENTA NYL legend Abbrev iation s OLR - Outsi de of linea r range Not Available [place] [address] [place], [address], 09/30/2021 12:42:07 Result Notes None recorded. Problems Name Problem SNOMED Code Status Onset Date Resolution Date Notes Provider Name and Address Organization Details Recorded Time Mixed anxiety and depressive disorder 896466035 Active 2017 Not Available [facility] 03:11:51 Tear of meniscus of knee 480990474 Active 2018 Not Available [facility] 03:11:51 Nicotine dependence with current use 077088906 Active 2020 Not Available [facility] 03:11:51 Opioid dependence 04661514 Active 2017 Not Available [facility] 03:11:51 Problem Notes None recorded. Procedures Surgical History Date Name Laterality Status Provider Name and Address Organization Details Recorded Time 09/26/2021 54029, G0480, G0481 completed [facility] 09/26/2021 11:18:24 08/29/2021 37073, G0480, G0481 completed Cecy Avila [facility] 08/29/2021 11:12:05 07/28/2021 22925, G0480, G0481 completed [facility] 07/28/2021 10:42:55 Imaging Results None recorded. Procedure Notes None recorded. Medical Equipment None Reported. Medications Name Sig Start Date Stop Date Status Note LastModified by Organization Details LastModified Time Effexor XR 75 mg capsule,ext ended release Take 2 capsules every day by oral route. 07/02 completed Not Available Not Available Not Available sertraline 100 mg tablet Take 1 tablet every day by oral route. 10/02 completed Not Available Not Available Not Available hydroxyzine pamoate 50 mg capsule Take 1 capsule PO QID as needed for anxiety 2021 active Not Available Not Available Not Avai lable clonazepam 2 mg tablet TAKE 1 TABLET BY MOUTH THREE TIMES A DAY NEEDED active Not Available Not Available No t Available mirtazapine 45 mg tablet TAKE 1 TABLET BY MOUTH EVERY DAY active Not Available Not Available No t Available Depakote 250 mg tablet,lorna yed release Take 1 tablet twice a day by oral route. 10/30 completed Not Available Not Available Not Available bupropion HCl 10/02 completed Not Available Not Available Not Available aripiprazol e 2 mg tablet Take 1 tablet every day by oral route. 2020 active Not Available Not Available Not Avai lable buprenorphi ne 2 mg-naloxone 0.[address] FILM UNDER THE TONGUE DAILY 2021 active Not Available Not Available Not Avai lable buprenorphi ne 8 mg-naloxone [address] 1 FILM UNDER THE TONGUE EVERY DAY active Not Available Not Available No t Available Suboxone 4 mg-[address] 1 film every day by sublingua l route. 06/10 completed Not Available Not Available Not Available Suboxone 12 mg-[address] 0.5 films every day by sublingua l route. 06/10 completed Not Available Not Available Not Available Vitals Date Recorded Heart rate Oxygen saturation Oxygen saturation in Arterial blood by Pulse oximetry Body temperature Provider Name and Address Organization Details Last Updated DateTime 07/28/2021 78 /min 98 % 98 % 97.9 [degF] [facility] 10:[facility]:55 Date Recorded Body temperature Heart rate Oxygen saturation Oxygen saturation in Arterial blood by Pulse oximetry Provider Name and Address Organization Details Last Updated DateTime 08/29/2021 97.1 [degF] 72 /min 100 % 100 % [facility] 11:13:13 Date Recorded Heart rate Oxygen saturation Oxygen saturation in Arterial blood by Pulse oximetry Body temperature Provider Name and Address Organization Details Last Updated DateTime 09/26/2021 88 /min 99 % 99 % 97.8 [degF] [facility] 2 11:18:31 Date Recorded Oxygen saturation Oxygen saturation in Arterial blood by Pulse oximetry Heart rate Body temperature Provider Name and Address Organization Details Last Updated DateTime 06/03/2021 98 % 98 % 104 /min 98.5 [degF] Not Available [facility] 1 02:55:27 Date Recorded Oxygen saturation Oxygen saturation in Arterial blood by Pulse oximetry Heart rate Body temperature Provider Name and Address Organization Details Last Updated DateTime 07/01/2021 98 % 98 % 136 /min 97.9 [degF] Not Available [facility] 1 02:55:27 Social History Question Answer Notes LastModified by Organizat ion Details LastModified Time *Housing Stable - Safe Information not available 07/28/2021 *Employment Underemployed Informatio n not available 07/28/2021 *Food Adequate Information no t available 07/28/2021 *Plains Not A Information not available 07/28/2021 *Job Training/Educat ion/Literacy Not Needed Information not available 07/28/2021 *Legal Status No Legal Issues Inform ation not available 07/28/2021 *Legal Assistance Not Required Information not available 07/28/2021 *Custody Of Dependent Children Full Custody Information not available 07/28/2021 *Social Service's Involvement With Dependent Children Dental Practitioner Involvement Information not available 07/28/2021 *Childcare Needed No Information not available 07/28/2021 *Other Medical Issues Yes - Treated Information not available 07/28/2021 *Social Support Network Has Stable Support System Information not available 07/28/2021 *Transportation Issues Yes - Kept Me From Medical And Non-medical Appts Information not available 07/28/2021 Sex: Unknown Functional Status None recorded. Mental Status None recorded. Family History Nothing Reported. Medical History No medical history recorded. Gynecological HistoryNo gynecological history recorded. Obstetrics History GPAL:G 0 P 0 0 0 0 Past Encounters Encounter ID Performer Location Encounter Start Date Encounter Closed Date Diagnosis/Indication Diagnosis SNOMED-CT Code Diagnosis ICD10 Code Diagnosis Note [id number] [facility] [address] [place] [address], [place] [address] 03/19/2018 00:00:00 03/19/2018 11:46:22 [id number] [facility] [address] [place] [address], [place] [address] 7 04/16/2018 00:00:00 04/16/2018 12:11:21 [id number] [facility] [address] [place] [address], [place] [address] 7 05/14/2018 00:00:00 05/14/2018 13:12:57 [id number] [facility] [address] [place] [address], [place] [address] 06/12/2018 00:00:00 06/12/2018 11:37:55 [id number] [facility] [address] [place] [address], [place] [address] 7 07/02/2018 00:00:00 07/02/2018 14:04:43 [id number] [facility] [address] [facility] [place], [place] [address] 7 07/10/2018 00:00:00 07/10/2018 13:26:26 [id number] [facility] [place] [address] 08/07/2018 00:00:00 08/07/2018 15:17:16 [id number] [facility] [place] [address] 09/04/2018 00:00:00 09/04/2018 13:43:52 [id number] [facility] [address] [facility] [place], [place] [address] 10/02/2018 00:00:00 10/02/2018 13:22:46 [id number] [facility] [address] [place] [address] 11/06/2018 00:00:00 11/06/2018 13:47:47 [id number] [facility] [address] [facility], [place] [address] 7 10/30/2018 00:00:00 10/30/2018 13:35:29 [id number] [facility] [address] [facility], [place] [address] 11/27/2018 00:00:00 11/27/2018 13:19:03 [id number] [facility] [address] [place] [address] 12/25/2018 00:00:00 12/25/2018 13:17:50 [id number] [facility] [address] [place] [address] 01/24/2019 00:00:00 01/24/2019 13:31:57 [id number] [facility] [address] [place] [address] 02/04/2019 00:00:00 02/04/2019 11:39:34 [id number] [facility] [address] [place] [address] 02/21/2019 00:00:00 02/28/2019 09:48:09 [id number] [facility] [place] [address] 03/21/2019 00:00:00 04/10/2019 10:53:40 [id number] [facility] [address] [place] [address] 04/18/2019 00:00:00 04/25/2019 09:48:59 [id number] [facility] [place] [address] 05/13/2019 00:00:00 05/13/2019 12:30:51 [id number] [facility] [address] [place] [address] 06/10/2019 00:00:00 06/10/2019 12:50:34 [id number] [facility] [address] [facility], [place] [address] 06/27/2019 00:00:00 07/04/2019 09:43:59 [id number] [facility] [address] [place] [address] 07/25/2019 00:00:00 07/26/2019 16:48:56 [id number] [facility] [address] [place] [address] 08/22/2019 00:00:00 08/22/2019 13:50:41 [id number] [facility] [address] [place] [address] 09/19/2019 00:00:00 09/19/2019 13:29:29 [id number] [facility] [address] [place] [address] 10/17/2019 00:00:00 10/17/2019 15:26:03 [id number] [facility] [address] [facility] [place] [address] 11/14/2019 00:00:00 11/14/2019 11:47:20 [id number] [facility] [address] [place] [address] 12/12/2019 00:00:00 12/12/2019 12:35:48 [id number] [facility] [place] [address] 01/09/2020 00:00:00 01/09/2020 11:45:07 [id number] [facility] [place] [address] 01/27/2020 00:00:00 01/27/2020 16:45:18 [id number] [facility] [address] [place] [address] 02/06/2020 00:00:00 02/06/2020 11:37:30 [id number] [facility] [address] [place] [address] 02/27/2020 00:00:00 02/27/2020 11:47:45 [id number] [facility] [address] [place] [address] 03/26/2020 00:00:00 03/26/2020 11:37:50 [id number] [facility] [address] [facility] [place] [address] 04/23/2020 00:00:00 04/23/2020 11:30:51 [id number] [facility] [address] [facility] [place] [address] 05/21/2020 00:00:00 05/21/2020 12:58:44 [id number] [facility] [address] [place] [address] 7 06/18/2020 00:00:00 06/18/2020 11:24:06 [id number] [facility] [address] [facility] [place] [address] 08/13/2020 00:00:00 08/13/2020 12:42:20 [id number] [facility] [address] [place] [address] 7 07/14/2020 00:00:00 07/14/2020 10:57:03 [id number] [facility] [address] [place] [address] 10/29/2020 00:00:00 10/29/2020 12:49:23 [id number] [facility] [address] [place] [address] 09/10/2020 00:00:00 09/10/2020 11:26:23 [id number] [facility] [address] [place] [address] 10/08/2020 00:00:00 10/08/2020 11:48:10 [id number] [facility] [address] [place] [address] 11/26/2020 00:00:00 11/26/2020 11:10:19 [id number] [facility] [place] [address] 7 12/24/2020 00:00:00 12/24/2020 11:25:30 [id number] [facility] [place] [address] 02/18/2021 00:00:00 02/21/2021 07:30:12 [id number] [facility] [place] [address] 01/21/2021 00:00:00 01/22/2021 04:35:33 [id number] [facility] [place] [address] 05/06/2021 00:00:00 05/09/2021 14:51:49 [id number] [facility] [facility] [place] [address] 04/15/2021 00:00:00 04/15/2021 12:47:42 [id number] [facility] [place] [address] 03/18/2021 00:00:00 03/22/2021 13:38:47 [id number] [facility] [facility] [place] [address] 06/03/2021 00:00:00 06/04/2021 13:42:29 [id number] [facility] [facility] [place] [address] 07/01/2021 00:00:00 07/01/2021 11:55:28 [id number] Ludwin Redman NP [facility] [place] [address] 07/28/2021 10:39:05 07/28/2021 11:46:30 Opioid dependence 17587773 F11.20 STABLE [id number] Parker Odonnell NP [facility] [place] [address] 08/29/2021 11:08:23 08/29/2021 14:04:01 Opioid dependence 05566800 F11.20 Stable: >6 months without illicit opiate use [id number] Parker Odonnell NP [facility] [place] [address] 09/26/2021 11:11:07 09/26/2021 15:15:56 Opioid dependence 50213218 F11.20 Stable: >6 months without illicit opiate use Mixed anxi ety and depressive disorder 258586914 F41.8 Health Concerns Section Related Observation LastModified by Organization Detai ls LastModified Time None Recorded Concern Status LastModified by Organization Details LastModified Time None Recorded Advance Directives Directive None Recorded Payers Encounter Date Sequence Insurance Name Policy Number Policy Hancock Covered Member ID Hancock Member ID Guarantor Name 07/28/2021 1 [employer] Chaz Oviedonode [id number] Brandy L Patnode 08/29/2021 1 [employer] Chaz Asher Pat[employer] [id number] Brandy L Patnode 09/26/2021 1 [place] Chaz Asher [place] [id number] Brandy Conde [place] Notes Date Note Type Note Provider Name and Address Organization Details Recorded Time 07/28/2021 text/html The patient repo rts {{doing better doing well* struggling}} since last visit and {{denies* reports}} slip or relapse. MAT HPI They {{deny* report}} cravings for opiates and {{deny* report}} opiates use since their last visit. They {{deny* report}} cravings for other substances and {{deny* report}} other substance use since their last visit. Triggers {{are* are not}} identified and any alleviating factors to identified triggers are discussed. Withdrawal symptoms {{are are not*}} present. MAT Administration and Program Adherence The patient {{is* is not}} compliant with prescribed buprenorphine dose and {{can* can not}} describe proper medication administration and technique. The patient {{denies* reports}} side effects from the medication. There {{are* are not}} other support systems in place for this patient. Ludwin Redman NP [address] [place] [address], [phone], [facility] [employer] 07/28/2021 11:45:14 08/29/2021 text/html The patient repo rts {{doing better doing well* struggling}} since last visit and {{denies* reports}} slip or relapse.MAT HPIThey {{deny* report}} cravings for opiates and {{deny* report}} opiates use since their last visit. They {{deny* report}} cravings for other substances and {{deny* report}} other substance use since their last visit. Triggers {{are are not*}} identified and any alleviating factors to identified triggers are discussed. Withdrawal symptoms {{are are not*}} present.MAT Administration and Program AdherenceThe patient {{is* is not}} compliant with prescribed buprenorphine dose and {{can* can not}} describe proper medication administration and technique. The patient {{denies* reports}} side effects from the medication. There {{are* are not}} other support systems in place for this patient. There {{is is no*}} concern for diversion. Parker Odonnell NP [address] [place], [address], [facility] [employer] 08/29/2021 12:31:36 09/26/2021 text/html This patient is here today for their follow-up MAT visit. They are being treated for OUD with buprenorphine. PLEASE SEE A & P SECTION FOR FULL VISIT NOTE Parker Odonnell NP [address] [place], [address], [employer] 09/26/2021 13:55:22 OBGyn Episode No OBEpisode recorded.
--- OUTSIDE RECORDS SUMMARY | 2024-09-26 13:06 | XMS_ITS | Continuity of Care Document ---
Author Organization [facility] Address [address] [place] [address] [place] [address] Assessment Encounter Date Assessment Date Assessment LastModified by Organization Details LastModified Time 09/24/2024 09/24/2024 Patient presented for medication refill. Patient tolerating medication well at current dose without adverse effects. Refilled as below. Discussed plan with patient, who expressed understanding . Follow up as noted below. Not available 09/24/2024 11:30:50 Plan of Treatment Reminders Order Date Submit Date Provider Last Modified By Organization Details Last Modified Time Details Appointments None recorded. Lab CMP, serum or plasma 2024 025 [facility], [address] [place] [address], [address], 5 11:37:07 CBC w/ auto diff 2024 025 [facility], [address] [place] [address], [address], 5 11:37:07 vitamin B12, serum 2024 025 [facility], [address] [place] [address], [address], 5 11:37:07 TSH, serum or plasma 2024 025 [facility], [address] [place] [address], [address], 5 11:37:07 vitamin D, 25-hydroxy , total, serum 2024 025 [facility], [address] [place] [address], [place], [address], 5 11:37:07 Referral None recorded. Procedures None recorded. Surgeries None recorded. Imaging None recorded. Medication Orders aripiprazo le 15 mg tablet 2024 025 [facility], [address] [place], [address], 11:30:41 Patient TargetsNo targets recorded. Patient Instructions Encounter Date Encounter Id Patient Instructions Last Modified By Organization Details Last Modified Time 09/24/2024 [id number] attention defici t hyperactivity disorder (ADHD) in adults: care instructions Not available 09/24/2024 11:35:42 Reason for Referral None Reported. Problems Name Problem SNOMED Code Status Onset Date Resolution Date Notes Provider Name and Address Organization Details Recorded Time Mood disorder 16380366 Active 2017 Barrett Hannah, DO [address] [place] [address], [phone], [facility] 8 13:46:20 Tear of medial meniscus of knee 142128463 Active 2018 Barrett aHnnah, DO [address] [place] [address], [address], [facility] 9 10:08:34 Drug withdraw al 205680210 Completed 202106/07/2022 Barrett Hannah, DO [address] [place] [address], [address], [facility] 2 10:10:51 Anxiety 23918032 Active 2021 Swathi adorno [facility] 5 08:23:33 Attentio n deficit hyperact ivity disorder , predomin antly inattent sam type 31946968 Active 2021 Swathi adorno [facility] 5 08:23:33 Unexplai kev weight loss 338901519 Completed 201712/19/2019 Barrett Cueto [place], [address] [place], [address], [facility] 0 11:01:47 Primary thromboc ytopenia 290996769 Completed 201710/01/2020 believe this secondar y to depakote Barrett Cueto [place], [address] [place], [address], [facility] 1 10:34:56 Problem Notes None recorded. Medical Equipment None Reported. Allergies Allergen ID Allergen Name Allergen Category Reaction Reaction Severity Criticality Documentation Date Start Date Code Code System Note Provider Name and Address Organization Details Recorded Time 2560 venlafaxi ne medicatio n other Not available Not available 06/14/2018 85756 RxNorm made anxie ty worse Daisy Bernstein [facility] 8 13:30:49 6228 bupropion Not available Not available Not available Not available 06/27/2022 56860 RxNorm Barrett Hannah, [address] [place], [address], [facility] 2 14:55:24 Medications Name Sig Start Date Stop Date Status Note LastModified by Organization Details LastModified Time Prescriptio n - Prior Authorizati on Request active Not Available Not Available N ot Available bupropion HCl SR 150 mg tablet,12 hr sustained-r elease Take 1 tablet twice a day by oral route for 30 days. 09/06 completed Not Available Not Available Not Available venlafaxine 75 mg tablet Take 1 tablet twice a day by oral route. 06/14 completed Not Available Not Available Not Available tizanidine 4 mg tablet TAKE 1 TABLET BY MOUTH EVERY 6 HOURS FOR 7 DAYS 06/07 completed Not Available Not Available Not Available dextroamphe tamine-amph etamine 10 mg tablet TAKE ONE TABLET BY MOUTH EVERY DAY IN THE MORNING active Not Available Not Available No t Available hydroxyzine pamoate 50 mg capsule TAKE 1 CAPSULE BY MOUTH 4 TIMES A DAY NEEDED FOR ANXIETY 06/07 completed Not Available Not Available Not Available bupropion HCl SR 100 mg tablet,12 hr sustained-r elease Take 1 tablet twice a day by oral route for 30 days. 08/23 completed Not Available Not Available Not Available clonidine HCl 0.2 mg tablet Take 1 tablet twice a day by oral route for 30 days. 06/07 completed Not Available Not Available Not Available chlordiazep oxide 25 mg capsule TAKE 1 CAPSULE BY MOUTH THREE TIMES A DAY FOR 7 DAYS 06/07 completed Not Available Not Available Not Available baclofen 10 mg tablet TAKE 1 TABLET BY MOUTH TWICE A DAY 2019 active prn Not Available Not Available Not Avai lable mirtazapine 30 mg tablet Take 1 tablet every day by oral route. 01/08 completed Not Available Not Available Not Available clonazepam 2 mg tablet TAKE ONE TABLET BY MOUTH THREE TIMES A DAY NEEDED active Not Available Not Available No t Available mirtazapine 45 mg tablet TAKE ONE TABLET BY MOUTH EVERY DAY active Not Available Not Available No t Available chlordiazep oxide 10 mg capsule TAKE 1 CAPSULE BY MOUTH THREE TIMES A DAY FOR 7 DAYS 06/07 completed Not Available Not Available Not Available diclofenac sodium 50 mg tablet,lorna yed release Take 1 tablet twice a day by oral route for 30 days. 04/16 completed Not Available Not Available Not Available Depakote 125 mg tablet,lorna yed release Take 2 tablets twice a day by oral route with meals for 30 days. 09/13 completed Not Available Not Available Not Available Zoloft 100 mg tablet Take 1 tablet every day by oral route for 30 days. 09/06 completed Not Available Not Available Not Available Depakote 250 mg tablet,lorna yed release Take 1 tablet twice a day by oral route for 30 days. 11/29 completed Not Available Not Available Not Available Depakote 500 mg tablet,lorna yed release Take 1 tablet twice a day by oral route for 30 days. 01/01 completed Not Available Not Available Not Available aripiprazol e 10 mg tablet TAKE ONE TABLET BY MOUTH EVERY DAY active Not Available Not Available No t Available aripiprazol e 15 mg tablet Take 1 tablet every day by oral route for 30 days. 2024 active Not Available Not Available Not Avai lable atomoxetine 18 mg capsule FOR FIRST WEEK TAKE ONE CAPSULE BY MOUTH TWICE A DAY, THEN TAKE 2 CAPSULES TWICE A DAY THEREBANG R. active Not Available Not Available No t Available aripiprazol e 5 mg tablet TAKE ONE TABLET BY MOUTH EVERY DAY 01/31 completed Not Available Not Available Not Available duloxetine 60 mg capsule,del ayed release Take 1 capsule every day by oral route for 30 days. 09/27 completed Not Available Not Available Not Available aripiprazol e 2 mg tablet TAKE ONE TABLET BY MOUTH EVERY DAY 08/07 completed Not Available Not Available Not Available Suboxone 8 mg-[address] 1 film every day by sublingua l route. 04/08 completed Not Available Not Available Not Available Suboxone 2 mg-0.[address] 2 films every day by sublingua l route. 06/07 completed Not Available Not Available Not Available Vitals None Recorded Social History Question Answer Notes LastModified by Organizat ion Details LastModified Time Tobacco Smoking Status Current Some Day Smoker Couple drags here or there Estephania Guevara [facility] 06/07/2022 09:32:43 What Was The Date Of Your Most Recent Tobacco Screening? 05/09/2023 [email or web address] Information not available 05/09/2023 How Much Tobacco Do You Smoke? No [email or web address] Information not available 06/07/2022 Sex: Unknown Functional Status None recorded. Mental Status None recorded. Family History Nothing Reported. Medical History No medical history recorded. Gynecological HistoryNo gynecological history recorded. Obstetrics History GPAL:G 0 P 0 0 0 0 Past Encounters Encounter ID Performer Location Encounter Start Date Encounter Closed Date Diagnosis/Indication Diagnosis SNOMED-CT Code Diagnosis ICD10 Code Diagnosis Note [id number] Barrett Hannah DO [facility] [address],[place] [address] 09/24/2024 08:27:03 09/24/2024 14:05:19 Renewal of prescription 475087274 Z76.0 will refill the zoloft now Mood disorder 17140355 F 38 PRIOR APPT: {is finally stable and is doing better feels she is not going backward anymore will cont current meds she is down to .25 of subox } she is going to be back on her meds and this is going to be our answer to this problem Attention deficit hyperactivity disorder, 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 given her history we will try to get her some alternativ e to amphetamin e to try Health Concerns Section Related Observation LastModified by Organization Detai ls LastModified Time None Recorded Concern Status LastModified by Organization Details LastModified Time None Recorded Payers Encounter Date Sequence Insurance Name Policy Number Policy Hancock Covered Member ID Hancock Member ID Guarantor Name 09/24/2024 1 [facility]: [employer] Chaz Childress [id number] Brandy Childress Notes Date Note Type Note Provider Name and Address Organization Details Recorded Time 5 text/html patient is evaluated via tele/video assessment per patient consent during current pandemicstates doing ok not perfect states her anxiety patient is evaluated via tele/video assessment per patient consent during current pandemicdiscussion re her medicationsrelates is trying to move to her house stressed Barrett Hannah, DO [address] [facility], [place], [address], [facility] 09/24/2024 11:37:49 OBGyn Episode No OBEpisode recorded.
--- OUTSIDE RECORDS SUMMARY | 2024-09-26 13:06 | XMS_ITS | Data Portability ---
Author Organization [facility] Home Service Address [address] [place] [address] Assessment Encounter Date Assessment Date Assessment LastModified by Organization Details LastModified Time 08/07/2022 08/07/2022 [id number] [place] [id number] (CHICKEN VACCINATOR) : [facility] LOW MUST MEET 2 OF 3 ELEMENTS: PROBLEMS, DATA OR RISK ELEMENT 1: PROBLEMS ADDRESSED (LOW): 2 OR MORE SELF-LIMITED OR MINOR PROBLEMS OR 1 STABLE CHRONIC ILLNESS OR 1 ACUTE UNCOMPLICATED ILLNESS OR INJURY ELEMENT 2: DATA TO BE REVISED AND ANALYZED (LOW) MUST MEET 1 OF 2 CATEGORIES: CATEGORY 1. REVIEW OF PRIOR EXTERNAL NOTES/RESULTS, ORDERING OF TEST(S) CATEGORY 2. ASSESSMENT REQUIRING INDEPENDENT HISTORIAN(S) INCLUDE WHO THE HISTORIAN IS AND RELATION TO PT AND WHY PT IS UNABLE TO GIVE COMPLETE HISTORY ELEMENT 3: RISK (LOW) RISK OF COMPLICATIONS AND/OR MORBIDITY OR MORTALITY OF PATIENT MANAGEMENT PROVIDER MUST THOROUGHLY DOCUMENT ALL OF THE ELEMENTS COVERED Not available 08/07/2022 16:41:08 05/09/2023 05/09/2023 [id number] [place] [id number] (CHICKEN VACCINATOR) : [facility] LOW MUST MEET 2 OF 3 ELEMENTS: PROBLEMS, DATA OR RISK ELEMENT 1: PROBLEMS ADDRESSED (LOW): 2 OR MORE SELF-LIMITED OR MINOR PROBLEMS OR 1 STABLE CHRONIC ILLNESS OR 1 ACUTE UNCOMPLICATED ILLNESS OR INJURY ELEMENT 2: DATA TO BE REVISED AND ANALYZED (LOW) MUST MEET 1 OF 2 CATEGORIES: CATEGORY 1. REVIEW OF PRIOR EXTERNAL NOTES/RESULTS, ORDERING OF TEST(S) CATEGORY 2. ASSESSMENT REQUIRING INDEPENDENT HISTORIAN(S) INCLUDE WHO THE HISTORIAN IS AND RELATION TO PT AND WHY PT IS UNABLE TO GIVE COMPLETE HISTORY ELEMENT 3: RISK (LOW) RISK OF COMPLICATIONS AND/OR MORBIDITY OR MORTALITY OF PATIENT MANAGEMENT PROVIDER MUST THOROUGHLY DOCUMENT ALL OF THE ELEMENTS COVERED Not available 05/09/2023 11:59:25 02/01/2024 02/01/2024 [id number] [place] [id number] (CHICKEN VACCINATOR) : [facility] LOW MUST MEET 2 OF 3 ELEMENTS: PROBLEMS, DATA OR RISK ELEMENT 1: PROBLEMS ADDRESSED (LOW): 2 OR MORE SELF-LIMITED OR MINOR PROBLEMS OR 1 STABLE CHRONIC ILLNESS OR 1 ACUTE UNCOMPLICATED ILLNESS OR INJURY ELEMENT 2: DATA TO BE REVISED AND ANALYZED (LOW) MUST MEET 1 OF 2 CATEGORIES: CATEGORY 1. REVIEW OF PRIOR EXTERNAL NOTES/RESULTS, ORDERING OF TEST(S) CATEGORY 2. ASSESSMENT REQUIRING INDEPENDENT HISTORIAN(S) INCLUDE WHO THE HISTORIAN IS AND RELATION TO PT AND WHY PT IS UNABLE TO GIVE COMPLETE HISTORY ELEMENT 3: RISK (LOW) RISK OF COMPLICATIONS AND/OR MORBIDITY OR MORTALITY OF PATIENT MANAGEMENT PROVIDER MUST THOROUGHLY DOCUMENT ALL OF THE ELEMENTS COVERED Not available 02/01/2024 15:03:58 05/06/2024 05/06/2024 [id number] [place] [id number] (CHICKEN VACCINATOR) : [facility] LOW MUST MEET 2 OF 3 ELEMENTS: PROBLEMS, DATA OR RISK ELEMENT 1: PROBLEMS ADDRESSED (LOW): 2 OR MORE SELF-LIMITED OR MINOR PROBLEMS OR 1 STABLE CHRONIC ILLNESS OR 1 ACUTE UNCOMPLICATED ILLNESS OR INJURY ELEMENT 2: DATA TO BE REVISED AND ANALYZED (LOW) MUST MEET 1 OF 2 CATEGORIES: CATEGORY 1. REVIEW OF PRIOR EXTERNAL NOTES/RESULTS, ORDERING OF TEST(S) CATEGORY 2. ASSESSMENT REQUIRING INDEPENDENT HISTORIAN(S) INCLUDE WHO THE HISTORIAN IS AND RELATION TO PT AND WHY PT IS UNABLE TO GIVE COMPLETE HISTORY ELEMENT 3: RISK (LOW) RISK OF COMPLICATIONS AND/OR MORBIDITY OR MORTALITY OF PATIENT MANAGEMENT PROVIDER MUST THOROUGHLY DOCUMENT ALL OF THE ELEMENTS COVERED Not available 05/06/2024 14:09:34 09/24/2024 09/24/2024 Patient presented for medication refill. Patient tolerating medication well at current dose without adverse effects. Refilled as below. Discussed plan with patient, who expressed understanding. Follow up as noted below. Not available 09/24/2024 11:30:50 Plan of Treatment Reminders Order Date Submit Date Provider Last Modified By Organization Details Last Modified Time Details Appointments None recorded. Lab CMP, serum or plasma 2024 025 [facility], [address] [place] [address], [place], [address], 5 11:37:07 CBC w/ auto diff 2024 [facility], [address] [place] [address], [address], 5 11:37:07 vitamin B12, serum 2024 [facility], [address] [place] [address], [address], 5 11:37:07 TSH, serum or plasma 2024 [facility], [address] [place] [address], [address], 5 11:37:07 vitamin D, 25-hydroxy , total, serum 2024 025 [facility], [address] [place] [address], [address], 5 11:37:07 Referral None recorded. Procedures None recorded. Surgeries None recorded. Imaging None recorded. Medication Orders aripiprazo le 15 mg tablet 2024 025 [facility], [address] [place], [address], 5 11:30:41 mirtazapin e 45 mg tablet 2023 024 [facility], [address] [place], [address], 4 15:03:25 aripiprazo le 10 mg tablet 2023 024 [facility], [address] [place], [address], 4 15:03:26 clonazepam 2 mg tablet 2022 023 [facility], [address] [place], [address], 3 12:00:34 dextroamph etamine-am phetamine 10 mg tablet 2022 023 [facility], [address] [place], [address], 3 12:00:32 aripiprazo le 5 mg tablet 2022 023 [facility], [address] [place], [address], 4 15:03:32 Patient TargetsNo targets recorded. Patient Instructions Encounter Date Encounter Id Patient Instructions Last Modified By Organization Details Last Modified Time 05/06/2024 [id number] attention defici t hyperactivity disorder (ADHD) in adults: care instructions Not available 05/06/2024 14:12:29 09/24/2024 [id number] attention defici t hyperactivity disorder (ADHD) in adults: care instructions Not available 09/24/2024 11:35:42 Reason for Referral None Reported. Problems Name Problem SNOMED Code Status Onset Date Resolution Date Notes Provider Name and Address Organization Details Recorded Time Mood disorder 99221197 Active 2017 Barrett Hannah DO [address] [place] [address], [address], [facility] 8 13:46:20 Tear of medial meniscus of knee 119899825 Active 2018 Barrett Hannah DO [address] [place] [address], [address], [facility] 9 10:08:34 Drug withdraw al 019274175 Completed 202106/07/2022 Barrett Hannah DO [address] [place] [address], [address], [facility] 2 10:10:51 Anxiety 67623462 Active 2021 [facility] 08:23:33 Attentio n deficit hyperact ivity disorder , predomin antly inattent sam type 91852675 Active 2021 [facility] 5 08:23:33 Unexplai kev weight loss 491226180 Completed 201712/19/2019 Barrett LakeshiaShahriar Hannah DO [address] [place], [address], [facility] 0 11:01:47 Primary thromboc ytopenia 795151131 Completed 201710/01/2020 believe this secondar y to depakote Barrett Hannah, [address] [place] [address], [address], [facility] 1 10:34:56 Problem Notes None recorded. Medical Equipment None Reported. Allergies Allergen ID Allergen Name Allergen Category Reaction Reaction Severity Criticality Documentation Date Start Date Code Code System Note Provider Name and Address Organization Details Recorded Time 2560 venlafaxi ne medicatio n other Not available Not available 06/14/2018 42209 RxNorm made anxie ty worse [facility] 8 13:30:49 6228 bupropion Not available Not available Not available Not available 06/27/2022 51035 RxNorm Barrett AsherShahriar Hannah DO [address] [place], [address], [facility] 2 14:55:24 Medications Name Sig Start Date [...] TAKE 2 CAPSULES TWICE A DAY THEREBANG RShahriar active Not Available Not Available No t [...] Not Available Not Available Vitals Date Recorded Body height Body mass index (BMI) Body weight Heart rate Oxygen saturation Oxygen saturation in Arterial blood by Pulse oximetry Systolic blood pressure Diastolic blood pressure Provider Name and Address Organization Details Last Updated DateTime 3 163.83 cm 20.4 kg/m2 31319.6 8 g 90 /min 99 % 99 % 90 mm[Hg] 61 mm[Hg] Dina Walters [facility] 3 11:20:57 Social History Question Answer Notes LastModified by Organizat ion Details LastModified Time Tobacco Smoking Status Current Some Day Smoker Couple drags here or there [facility] 06/07/2022 09:32:43 What Was The [...] SNOMED-CT Code Diagnosis ICD10 Code Diagnosis Note [id number] Barrett Hannah [facility] [address] [place] [address] 11/16/2017 13:58:56 11/16/2017 16:40:28 Tear of medial meniscus of knee 386302272 S83.222D [id number] Barrett Hannah [facility] [address] [address] 06/14/2018 13:15:54 06/14/2018 16:38:14 Renewal of prescription 279133951 Z76.0 will refill the zoloft now Mood disorder 58025739 F 38 will add buproprion low dose at 100 mg daily with the zoloft Primary thrombocytopenia 051766294 D69.49 [place] recheck cbc plt [id number] Barrett Hannah [facility] [address], [place] [address] 07/12/2018 10:35:54 07/12/2018 12:15:47 Depressive disorder 77986010 F32.1 buproprion is doing ok and will need to have her cont with a higher dose will 150 dose to bid Tear of me dial meniscus of knee 623797951 S83.222D will need surgery bit anesthesio logist is asking to have her off suboxone for 5 days prior to sugery'; this is not correct protocol recc she take plain bupronorph ine throughout the surg care albeit she needs to be off naloxone but cont on bup [id number] Barrett Hannah [facility] [address], [place] [address] 08/23/2018 10:20:47 08/23/2018 11:29:40 Mood disorder 86373967 F39 feels that the wellbutrin was somewhat helpful and helped quit tobacco but the zoloft has not done anything for her start cymbalta [id number] Barrett AsherShahriar Hannah [facility] [address] [facility] [address] 09/06/2018 11:03:36 09/06/2018 14:13:03 Outbursts of anger 385846912 R45.4 moods are jumping around will lower the diuloxetin e to 30 at next visit Unexplaine d weight loss 724878401 R63.4 [id number] Barrett Cueto [place] [facility] [address] [facility] [address] 09/13/2018 11:29:11 09/13/2018 12:00:50 Mood disorder 81481695 F39 depakote will be increased like discuss [id number] Barrett Cueto [place] [facility] [address] [facility] [address] 09/27/2018 13:50:03 09/27/2018 14:48:16 Mood disorder 60906281 F39 depakote increased like discuss doing better overall will get lab in 1 month [id number] Barrett AsherShahriar Hannah [facility] [address] [facility] [address] 11/08/2018 13:55:32 11/08/2018 14:51:53 Leukopenia 00921339 D72.819 felt to be secondary to the depakote and we will have her check ablood test now and we will need to restart the depakote very carefully Mood disorder 09059918 F 39 depakote increased like discuss doing better overall will get lab in 1 month Anxiety 75354361 F41.9 Barrett AsherShahriar Hannah [facility] [address] [facility] [address] [address] 11/29/2018 11:24:45 11/29/2018 14:46:00 Mood disorder 13862339 F39 depakote level remains low and we will need to increase the dose Costal chondritis 296058 04 M94.0 has noted palp pain to that area of her costo chondral area [id number] Barrett Hannah [facility] [address] [facility] [address] 12/27/2018 11:28:57 12/27/2018 14:36:16 Mood disorder 68130232 F39 depakote at 500 is not helping but when she tried to decrease the dose she got worse with her mood after long detailed discussion we will try to get her the abilify as this has helped in the past Barrett Hannah [facility] [address] [facility] [address] 01/01/2019 09:27:51 01/01/2019 10:18:38 Mood disorder 03968976 F39 depakote at 500 is not helping but when she tried to decrease the dose she got worse with her mood after long detailed discussion we will try to get her the abilify as this has helped in the past Tear of me niscus of knee 210171705 S83.207A will offer cortisone inj Leukopenia 89435806 D72. 819 felt to be secondary to the depakote and we will have her check a blood test will get cbc in couple weeks [id number] Barrett Gutierrezelsa [facility] [address] [facility],[place] [address] 01/08/2019 12:00:52 01/08/2019 14:23:49 Mood disorder 95555833 F39 depakote at 500 is not helping but when she tried to decrease the dose she got worse with her mood after long detailed discussion we will try to increase the [place]tazapin e [id number] Barrett aHnnah [facility] [address] [facility] [address] 01/24/2019 13:22:55 01/24/2019 14:53:19 Tear of medial meniscus of knee 874670405 S83.222D overall is still uncomforta ble and madina with full flexion on squatting feels the crunching Mood disorder 66046294 F 39 is finally stable and is doing better feels she is not going backward anymore [id number] Barrett Cueto [place] [facility] [address] [facility] [facility] [place] [address] 04/16/2019 11:59:01 04/16/2019 14:17:31 Tremor 48977842 R25.1 anxiety driven but is somehow better with baclofen and this in turn allow her to not take the klonopin Anxiety disorder 0754814 06 F41.9 as above will tyr to adjust mirtaz 45 and the abilify 2 [id number] Barrett Hannah [facility] [address] [facility], [address] [facility] [place] [address] 05/23/2019 14:13:24 05/23/2019 14:40:47 Tear of medial meniscus of knee 672086658 S83.222D overall is still uncomforta ble and madina with full flexion on squatting feels the crunching etc will order kenalog for jere inj Mood disorder 64995064 F 39 is finally stable and is doing better feels she is not going backward anymore will cont current meds [id number] Barrett Hannah [address],[place] [address] 08/22/2019 09:38:23 08/22/2019 10:32:35 Mood disorder 46145128 F39 is finally stable and is doing better feels she is not going backward anymore will cont current meds Inflammati on of rotator cuff tendon 582419041 M67.811 will need to refer has a RIGHT shoulder tendonopat hy will ask for ortho to look at knee as well Tear of me dial meniscus of knee 192073409 S83.222D overall is still uncomforta ble and madina with full flexion on squatting feels the crunching etc will order kenalog for jere inj [id number] Barrett Hannah [facility] [address] [facility], [address] [facility] [place] [address] 12/19/2019 10:04:44 12/19/2019 11:35:35 Mood disorder 29048816 F39 is finally stable and is doing better feels she is not going backward anymore will cont current meds Primary thrombocytopenia 142813587 D69.49 will need to recheck cbc plt Tear of me dial meniscus of knee 897970627 S83.222D overall is still uncomforta ble and madina with full flexion on squatting feels the crunching etc will order kenalog for jere inj [id number] Barrett Hannah [facility] [address] [facility],[place] [address] 05/07/2020 10:13:43 05/07/2020 10:54:01 Mood disorder 56904935 F39 is finally stable and is doing better feels she is not going backward anymore will cont current meds she is down to 4 of subox Tear of me dial meniscus of knee 189816920 S83.222D overall is still uncomforta ble at times and madina with full flexion on squatting feels the crunching etc but overall is doing ok with it [id number] Barrett Hannah DO [facility] [address] [facility],[place] [address] 10/01/2020 09:46:25 10/01/2020 10:50:30 Mood disorder 65983990 F39 is finally stable and is doing better feels she is not going backward anymore will cont current meds she is down to 4 of subox Primary thrombocytopenia 471312619 D69.49 will need to recheck cbc plt but this is felt to be secondary to the depakote that pt was on in the past no longer an issue [id number] Barrett Hannah [facility] [address] [facility] [address] 04/08/2021 08:24:39 04/08/2021 11:22:21 Mood disorder 53235401 F39 is finally stable and is doing better feels she is not going backward anymore will cont current meds she is down to 2 of subox Tear of me dial meniscus of knee 274069820 S83.222D overall is still uncomforta ble at times and madina with full flexion on squatting feels the crunching etc but overall is doing ok with it [id number] Barrett Hannah [facility] [address] [facility] [address] 09/07/2021 13:35:12 09/12/2021 13:59:00 Mood disorder 35718978 F39 is finally stable and is doing better feels she is not going backward anymore will cont current meds she is down to .25 of subox Primary thrombocytopenia 648774783 D69.49 will need to recheck cbc plt but this is felt to be secondary to the depakote that pt was on in the past no longer an issue Tear of me dial meniscus of knee 462862099 S83.222D overall is still uncomforta ble at times and madina with full flexion on squatting feels the crunching etc but not as bad but overall is doing ok with it [id number] Barrett Hannah [facility] [address] [facility] [address] 09/20/2021 12:00:37 09/21/2021 09:18:39 Opioid dependence 86932261 F11.20 stable and doing great and continues to wean off [id number] Barrett Hannah [facility] [address] [facility] [address] 10/05/2021 08:54:06 10/07/2021 11:11:31 Muscle pain 48218142 M79.10 will use the tizan wotrked very well Drug withdrawal 52059561 5 F19.939 we will provide her with some more librium to use on a prn [id number] Barrett Hannah [facility] [address] [facility] [address] 06/07/2022 09:23:50 06/07/2022 11:37:07 Attention deficit hyperactivity disorder, predominantly inattentive type 37046178 F90.0 given her history we will try to get her some alternativ e to amphetamin e to try [id number] Barrett Hannah [facility] [address] [facility] [address] 06/27/2022 08:26:10 06/27/2022 16:14:16 Attention deficit hyperactivity disorder, predominantly inattentive type 81492852 F90.0 given her history we will try to get her some alternativ e to amphetamin e to try [id number] Barrett Cueto [place] [facility] [address] [facility] [place] [address] 08/07/2022 10:33:39 08/07/2022 16:45:21 Attention deficit hyperactivity disorder, predominantly inattentive type 34710884 F90.0 given her history we will try to get her some alternativ e to amphetamin e to try Anxiety 89134785 F41.9 she will get back on the medication she should be on Mood disorder 33705661 F 38 PRIOR APPT: {is finally stable and is doing better feels she is not going backward anymore will cont current meds she is down to .25 of subox } she is going to be back on her meds and this is going to be our answer to this problem Primary thrombocytopenia 609038389 D69.49 will need to recheck cbc plt but this is felt to be secondary to the depakote that pt was on in the past no longer an issue Drug withdrawal 73811851 5 F19.939 we will provide her with some more librium to use on a prn Active or passive immunization 185541752 Z23 patient advised she is due for tdap [id number] Barrett AsherShahriar Hannah [facility] [address] [facility] [address] 05/09/2023 11:08:18 05/09/2023 13:33:40 Anxiety 40125470 F41.9 she will get back on the medication she should be on Attention deficit hyperactivity disorder, predominantly inattentive type 83546464 F90.0 given her history we will try to get her some alternativ e to amphetamin e to try [id number] Barrett Gutierrezelsa [facility] [address] [facility] [place] [address] 02/01/2024 10:20:13 02/01/2024 15:09:08 Mood disorder 24811333 F39 PRIOR APPT: {is finally stable and is doing better feels she is not going backward anymore will cont current meds she is down to .25 of subox } she is going to be back on her meds and this is going to be our answer to this problem [id number] Barrett Hannah, [facility] [address] [facility], [address] [facility] [place] [address] 05/06/2024 08:24:27 05/06/2024 14:16:34 Depression screening 885666222 Z13.31 neg Attention deficit hyperactivity disorder, predominantly inattentive type 18839285 F90.0 given her history we will try to get her some alternativ e to amphetamin e to try Mood disorder 65668343 F 39 PRIOR APPT: {is finally stable and is doing better feels she is not going backward anymore will cont current meds she is down to .25 of subox } she is going to be back on her meds and this is going to be our answer to this problem [id number] Barrett Hannah, [facility] [address] [facility],[address] [place] [address] 09/24/2024 08:27:03 09/24/2024 14:05:19 Renewal of prescription 366240475 Z76.0 will refill the zoloft now Mood disorder 86400546 F 38 PRIOR APPT: {is finally stable and is doing better feels she is not going backward anymore will cont current meds she is down to .25 of subox } she is going to be back on her meds and this is going to be our answer to this problem Attention deficit hyperactivity disorder, predominantly inattentive type 16569151 F90.0 given her history we will try [...] Member ID [place] Member ID Guarantor Name 08/07/2022 1 [employer] [employer] Chaz A Pat[employer] [id number] Brandy Patnode 05/09/2023 1 [employer] [employer] [place] Chaz A Pat[employer] [id number] Brandy Patnode 02/01/2024 1 [employer] [employer] Chaz A Pat[employer] [id number] Brandy Patnode 05/06/2024 1 [facility]: [employer] EM[employer]EE PRO[employer] Chaz Asher Pat[employer] [id number] Brandy Patnode 09/24/2024 1 [facility]: [employer]EE [employer] Chaz Asher [employer] [id number] Brandy Patnode Notes Date Note Type Note Provider Name and Address Organization Details Recorded Time 3 text/html patient is evaluated via tele/video assessment per patient consent during current pandemic pt relates she had been neglecting to take her meds as ordered and stopped taking the abilify and others on her ownshe was then feeling on edge and becoming unmanageable and felt sad and overwhelmedfamily wanted her to go to a respite for herselfshe went to respite but she hadnt had a drink for 2 days and she hadnt been drinking a lot to begin with but she mentioned that she had a CI[facility] dine [facility] the psych parekh for reasons [facility] didnt [facility] didnt feel she needed to be there eithershe began drinking that day and ended up in the ER Barrett Hannah DO [address] [place], [id number], [facility] 08/07/2022 16:48:04 3 text/html here for rechk and is dong ok overallstates that she is stressed at timesand states overall is okknee is still an issue at times doing well with abilify at 5mg Barrett Hannah DO [address] [place], [id number], [facility] 05/09/2023 12:02:23 4 text/html patient is evaluated via tele/video assessment per patient consentduring current pandemichas been doing okanxiety is still an issuesreally overall is doing okhad trouble with mirtazapine Barrett Hannah DO [address] [place], [id number], [facility] 02/01/2024 15:05:12 4 text/html patient is evaluated via tele/video assessment per patient consentduring current pandemicdiscussion re her medicationsrelates is trying to move to her house stressed Barrett Cueto [place], [address] [place], [id number], [facility] 05/06/2024 14:12:51 5 text/html patient is evaluated via tele/video assessment per patient consent during current pandemicstates doing ok not perfect states her anxiety patient is evaluated via tele/video assessment per patient consent during current pandemicdiscussion re her medicationsrelates is trying to move to her house stressed Barrett Cueto [place], [address] [place], [id number], [facility] 09/24/2024 11:37:49 OBGyn Episode No OBEpisode recorded.
[2024-09-26 13:45] LABS: MANUAL DIFF FLAG NO
[2024-09-26 13:56] LABS: Basophils Percent Auto 0.8 % (0-2); Eosinophils Percent Auto 0.8 % (0-4); Hematocrit 40.9 % (37.0-47.0); Hemoglobin 14.2 g/dl (12.0-16.0); Imm Gran Abs Auto 0.02 X10*3/uL (0.00-0.03); Imm Gran Pct Auto 0.4 % (0.0-0.4); Lymphocytes Absolute Auto 1.4 X10*3/uL (1.2-4.9); Lymphocytes Percent Auto 26.6 % (20-40); Mean Corpuscular HGB Conc 34.7 g/dl (31.0-35.0); Mean Corpuscular Hemoglobin 31.8 pg (27.0-33.0); Mean Corpuscular Volume 91.7 fL (80.0-98.0); Mean Platelet Volume 10.5 fL (9.4-12.3); Monocytes Absolute Auto 0.4 X10*3/uL (0.1-1.2); Monocytes Percent Auto 7.6 % (2-11); Neutrophils Absolute Auto 3.3 x10*3/uL (2.0-8.3); Neutrophils Percent Auto 63.8 % (45-73); Platelet Count 217 X10*3/uL (160-400); Red Blood Count 4.46 X10*6/uL (4.20-5.50); Red Cell Distribution Width 12.6 % (11.0-16.0); White Blood Count 5.1 X10*3/uL (4.8-10.8)
[2024-09-26 14:29] LABS: Alanine Aminotransferase 20 U/L (0-31); Albumin Level 4.5 g/dL (3.5-5.0); Alkaline Phosphatase 49 U/L (39-117); Anion Gap 13 (12-20); Aspartate Amino Transferase 22 U/L (5-31); Bilirubin Total 0.2 mg/dL (0.0-1.0); Blood Urea Nitrogen 13 mg/dL (9-16); Calcium 8.9 mg/dL (8.4-10.2); Carbon Dioxide 23 mmol/L (22-29); Chloride 107 mmol/L (96-108); Estimated Glomerular Filt Rate > 60; Glucose Random 113 mg/dL (60-115); Potassium 4.6 mmol/L (3.3-5.1); Sodium 138 mmol/L (135-145); Thyroid Stimulating Hormone 2.65 uIU/mL (0.32-4.0); Total Protein 7.7 g/dL (6.5-8.0)
[2024-09-26 14:34] LABS: Vitamin B12 499 pg/mL (200-900)
[2024-10-02 14:39] LABS: VITAMIN D (1,25 OH) D3 57 pg/mL; Vit D (1,25-Dihydroxy) Total 57 pg/mL (18-72); Vitamin D (1,25 OH) D2 <8 pg/mL
== END 2024-09-26 11:20 | disposition home or self-care (01) ==
LOC: HO.MANLDS 11:19
PROVIDERS: Visit Provider Internal Medicine
DX: F90.0 Attention-deficit hyperactivity disorder, predominantly inattentive type (principal)
CPT/HCPCS: 36415; 80053; 82607; 82652; 84443; 85025